=== PATIENT | female | born 1985 | race Caucasian/White ===

== ENCOUNTER 2025-04-27 11:57 | Day surgery (SDC) | payer BC ==
[2025-04-27 12:36] VITALS: BMI 42.9
[2025-04-27] MEDS ORDERED: hydrALAZINE 20 MG/ML VIAL SLOW IVP PRN (12:42)
[2025-04-27 12:58] LABS: #Basophils Less than 0.03 10x3/uL (0.0-0.2); #Eosinophils 0.15 10x3/uL (0.0-0.5); #Monocytes 0.71 10x3/uL (0.0-1.1); #Neutrophils 5.89 10x3/uL (1.5-8.4); %Basophils 0.2 % (0.0-2.0); %Eosinophils 1.8 % (0.0-6.0); %Lymphocytes 17.2 % (18.0-47.0); %Monocytes 8.7 % (0.0-10.0); %Neutrophils 71.9 % (40.0-75.0); Hematocrit 35.5 % (34.9-44.5); Hemoglobin 11.3 g/dL (12.0-15.5); Mean Corpuscular Hemoglobin 26.2 pg (27.0-33.0); Mean Corpuscular Volume 82.2 fL (81.6-98.3); Platelet Count 249 10x3/uL (150-450); Red Blood Cell (RBC) Count 4.32 10x6/uL (3.90-5.03); White Blood Cell (WBC) Count 8.20 10x3/uL (3.5-10.5)
[2025-04-27 13:29] LABS: ALT (SGPT) 20 U/L (Less than 34); AST (SGOT) 24 U/L (11-34); Albumin 2.9 g/dL (3.1-4.5); Alkaline Phosphatase 85 U/L (40-110); Anion Gap 13 mmol/L (10-20); BUN (Urea Nitrogen) 9 mg/dL (7.0-18.7); Bilirubin, Total 0.3 mg/dL (0.3-1.2); Calc. Creatinine Clearance 218 mL/min (70-130); Calcium 9.2 mg/dL (7.8-10.44); Carbon Dioxide 20 mmol/L (22-29); Chloride 106 mmol/L (98-107); Globulin 3.7 g/dL (2.4-3.5); Glucose 69 mg/dL (70-105); Potassium 4.0 mmol/L (3.5-5.1); Sodium 135 mmol/L (136-145)
[2025-04-27 14:13] LABS: Protein, Urine Random Quant Less than 10 mg/dL (1-14)
== END 2025-04-27 15:35 | disposition home or self-care (01) ==
LOC: CSHLD/OP 11:57
PROVIDERS: ATTEND Student in an Organized Health Care Education/Training Program
DX: O99.891 Other specified diseases and conditions complicating pregnancy (principal); R03.0 Elevated blood-pressure reading, without diagnosis of hypertension; O09.513 Supervision of elderly primigravida, third trimester; Z3A.37 37 weeks gestation of pregnancy; Z88.1 Allergy status to other antibiotic agents
CPT/HCPCS: 36415; 80053; 82570; 84156; 85025

== ENCOUNTER 2025-05-10 16:14 | Inpatient (IN) | payer BC ==
[2025-05-10] MEDS ORDERED: Ondansetron PF 4 MG/2 ML Vial IVP PRN (16:32)
[2025-05-10] MEDS ORDERED: Lidocaine 1% (PF) 30 ML VIAL SC PRN (16:32)
[2025-05-10] MEDS ORDERED: Methylergonovine 0.2 MG/ML VIAL IM PRN (16:32)
[2025-05-10] MEDS ORDERED: Ibuprofen 800 MG TAB PO PRN (16:32)
[2025-05-10] MEDS ORDERED: Calcium Gluc 4.6 MEQ/10 ML (100 MG/ML) SLOW IVP PRN (16:32)
[2025-05-10] MEDS ORDERED: HYDROcodone/Acetaminophen 5/325 mg Tablet PO PRN (16:32)
[2025-05-10] MEDS ORDERED: Carboprost 250 MCG/ML AMP IM PRN (16:32)
[2025-05-10] MEDS ORDERED: Oxytocin 30 units/NS 500 ML 500 ML IV SCH ×2 (16:45)
[2025-05-10 16:48] VITALS: BMI 44.6
[2025-05-10 17:53] LABS: ALT (SGPT) 19 U/L (Less than 34); AST (SGOT) 22 U/L (11-34); Albumin 2.8 g/dL (3.1-4.5); Alkaline Phosphatase 107 U/L (40-110); Anion Gap 15 mmol/L (10-20); BUN (Urea Nitrogen) 8 mg/dL (7.0-18.7); Bilirubin, Total 0.2 mg/dL (0.3-1.2); Calc. Creatinine Clearance 223 mL/min (70-130); Calcium 8.8 mg/dL (7.8-10.44); Carbon Dioxide 20 mmol/L (22-29); Chloride 108 mmol/L (98-107); Globulin 3.0 g/dL (2.4-3.5); Glucose 128 mg/dL (70-105); Potassium 4.1 mmol/L (3.5-5.1); Sodium 139 mmol/L (136-145)
[2025-05-10 18:24] LABS: Hematocrit 33.7 % (34.9-44.5); Hemoglobin 11.0 g/dL (12.0-15.5); Mean Corpuscular Hemoglobin 26.5 pg (27.0-33.0); Mean Corpuscular Volume 81.2 fL (81.6-98.3); Platelet Count 265 10x3/uL (150-450); Red Blood Cell (RBC) Count 4.15 10x6/uL (3.90-5.03); White Blood Cell (WBC) Count 8.26 10x3/uL (3.5-10.5)
[2025-05-10 21:00] LABS: Syphilis Antibody Index 0.05 S/CO (<1.00 Non-Reactive)
[2025-05-10 21:01] LABS: Hep B Surf Ag - L&D Non-Reactive S/CO (NonReactive)
[2025-05-11] MEDS: hydrALAZINE 20 MG/ML VIAL SLOW IVP PRN ×3 (05:11→21:25)
[2025-05-11] MEDS: fentaNYL/Ropivacaine Epidural 100 ML ONE (11:01)
[2025-05-11] MEDS ORDERED: Ondansetron PF 4 MG/2 ML Vial IVP PRN ×3 (11:04→22:49)
[2025-05-11] MEDS ORDERED: Acetaminophen 325 MG TAB PO PRN (11:04)
[2025-05-11] MEDS ORDERED: diphenhydrAMINE 50 MG/ML VIAL IVP PRN ×2 (11:04→22:49)
[2025-05-11] MEDS ORDERED: Communication Order-Pharmacy FS SCH ×2 (11:15→23:00)
[2025-05-11] MEDS: Acetaminophen 500 MG TAB PO PRN (19:18)
[2025-05-11] MEDS: fentaNYL 2 mcg/Ropivacaine 0.2% Epidural 100 ML CADD EPIDURAL SCH (19:19)
[2025-05-11] MEDS: Magnesium Sulfate 20 gm/500 ml 4 GM/100 ML BAG IVPB SCH (19:45)
[2025-05-11] MEDS ORDERED: hydrALAZINE 20 MG/ML VIAL SLOW IVP PRN ×2 (20:00)
[2025-05-11] MEDS ORDERED: Famotidine/PF 20 mg/2ml Vial SLOW IVP PRN (21:25)
[2025-05-11] MEDS ORDERED: Bicitra 30 ML UDCUP PO PRN (21:25)
[2025-05-11] MEDS ORDERED: Bisacodyl 10 MG SUPP PR PRN (22:36)
[2025-05-11] MEDS ORDERED: Meperidine HCl/PF 25 MG (1 mL) VIAL SLOW IVP PRN (22:49)
[2025-05-11] MEDS ORDERED: Ketorolac Tromethamine 30 MG (1 mL) VIAL IVP SCH (23:00)
[2025-05-11 23:07] LABS: #Basophils Less than 0.03 10x3/uL (0.0-0.2); #Eosinophils Less than 0.03 10x3/uL (0.0-0.5); #Monocytes 1.03 10x3/uL (0.0-1.1); #Neutrophils 16.73 10x3/uL (1.5-8.4); %Basophils 0.1 % (0.0-2.0); %Eosinophils 0.1 % (0.0-6.0); %Lymphocytes 5.3 % (18.0-47.0); %Monocytes 5.5 % (0.0-10.0); %Neutrophils 88.6 % (40.0-75.0); Hematocrit 34.9 % (34.9-44.5); Hemoglobin 11.4 g/dL (12.0-15.5); Mean Corpuscular Hemoglobin 26.5 pg (27.0-33.0); Mean Corpuscular Volume 81.2 fL (81.6-98.3); Platelet Count 213 10x3/uL (150-450); Red Blood Cell (RBC) Count 4.30 10x6/uL (3.90-5.03); White Blood Cell (WBC) Count 18.88 10x3/uL (3.5-10.5)
[2025-05-11] MEDS ORDERED: HYDROcodone/Acetaminophen 10/325 mg Tablet PO PRN (23:17)
[2025-05-11] MEDS: Diphenoxylate HCl/Atropine Tablet PO PRN (23:44)
[2025-05-12 04:05] LABS: ALT (SGPT) 19 U/L (Less than 34); AST (SGOT) 48 U/L (11-34); Albumin 2.5 g/dL (3.1-4.5); Alkaline Phosphatase 119 U/L (40-110); Anion Gap 15 mmol/L (10-20); BUN (Urea Nitrogen) 7 mg/dL (7.0-18.7); Bilirubin, Total 0.4 mg/dL (0.3-1.2); Calc. Creatinine Clearance 231 mL/min (70-130); Calcium 9.0 mg/dL (7.8-10.44); Carbon Dioxide 17 mmol/L (22-29); Chloride 109 mmol/L (98-107); Globulin 3.5 g/dL (2.4-3.5); Glucose 129 mg/dL (70-105); Magnesium 4.4 mg/dL (1.6-2.6); Potassium 4.0 mmol/L (3.5-5.1); Sodium 137 mmol/L (136-145)
[2025-05-12] MEDS: Ketorolac Tromethamine 30 MG (1 mL) VIAL IVP SCH (05:45)
[2025-05-12] MEDS ORDERED: Bupivacaine HCl 0.5%/Epinephrine 1:200,000/PF 30 ml Vial ONE (07:00)
[2025-05-12] MEDS ORDERED: Lidocaine 2% MPF 10 ML AMP (For Epidural Use) ONE (07:00)
[2025-05-12] MEDS ORDERED: Bupivacaine 0.25% HCL 30 ML VIAL ONE (07:00)
[2025-05-12 07:10] LABS: #Basophils 0.03 10x3/uL (0.0-0.2); #Eosinophils 0.09 10x3/uL (0.0-0.5); #Monocytes 0.88 10x3/uL (0.0-1.1); #Neutrophils 20.56 10x3/uL (1.5-8.4); %Basophils 0.1 % (0.0-2.0); %Eosinophils 0.4 % (0.0-6.0); %Lymphocytes 3.0 % (18.0-47.0); %Monocytes 3.9 % (0.0-10.0); %Neutrophils 92.1 % (40.0-75.0); Hematocrit 33.4 % (34.9-44.5); Hemoglobin 10.8 g/dL (12.0-15.5); Mean Corpuscular Hemoglobin 26.4 pg (27.0-33.0); Mean Corpuscular Volume 81.7 fL (81.6-98.3); Platelet Count 213 10x3/uL (150-450); Red Blood Cell (RBC) Count 4.09 10x6/uL (3.90-5.03); White Blood Cell (WBC) Count 22.35 10x3/uL (3.5-10.5)
[2025-05-12] MEDS: Magnesium Sulfate 20 gm/500 ml 20 GM/500 ML BAG IVPB SCH (14:52)
[2025-05-12] MEDS: Ferrous Sulfate 325 MG TAB PO SCH (22:41)
[2025-05-13] MEDS: Ibuprofen 800 MG TAB PO SCH (05:14)
[2025-05-13] MEDS: HYDROcodone/Acetaminophen 10/325 mg Tablet PO PRN (10:17)
[2025-05-13] MEDS: Simethicone Chewable 80 MG TAB PO PRN (13:59)
[2025-05-13] MEDS: CEFAZOLIN 2 GM VIAL ONE (19:07)
[2025-05-13] MEDS: Lidocaine 2% MPF 10 ML AMP (For Epidural Use) ONE (19:07)
[2025-05-13] MEDS: PHENYLEPHRINE-NS 100 MCG/ML 10 ML SYRINGE ONE (19:08)
[2025-05-13] MEDS: Oxytocin 10 UNITS/ML VIAL ONE (19:08)
[2025-05-13] MEDS: Magnesium Sulfate 20 gm/500 ml 20 GM/500 ML BAG ONE (19:09)
[2025-05-13] MEDS: Ketorolac Tromethamine 30 MG (1 mL) VIAL ONE (19:09)
[2025-05-14] MEDS: Boostrix 0.5 ML (Tdap) VIAL (>/=7 yrs of age) IM ONE (07:43)
[2025-05-14 08:02] VITALS: BP 136/67; TEMP 98.8
== END 2025-05-14 14:40 | disposition home or self-care (01) | DRG 788 ==
LOC: UNDOADMIN 16:14 → CSHLD 16:14 → UNDOADMIN 05-11 22:11 → CSHLD 05-11 22:11 → UNDOADMIN 05-12 02:29 → CSHPP 05-12 23:15
PROVIDERS: ADMIT Student in an Organized Health Care Education/Training Program; ATTEND Student in an Organized Health Care Education/Training Program
PROC: 3E0DXGC Introduction of Other Therapeutic Substance into Mouth and Pharynx, External Approach (ICD-10-PCS; 2025-05-10)
PROC: 10H07YZ Insertion of Other Device into Products of Conception, Via Natural or Artificial Opening (ICD-10-PCS; 2025-05-10)
PROC: 4A1HXCZ Monitoring of Products of Conception, Cardiac Rate, External Approach (ICD-10-PCS; 2025-05-10)
PROC: 10D00Z1 Extraction of Products of Conception, Low, Open Approach (ICD-10-PCS; principal; 2025-05-11)
DX: O14.04 Mild to moderate pre-eclampsia, complicating childbirth (principal); Z37.0 Single live birth; O40.3XX0 Polyhydramnios, third trimester, not applicable or unspecified; O99.214 Obesity complicating childbirth; O62.1 Secondary uterine inertia; Z79.899 Other long term (current) drug therapy; Z79.82 Long term (current) use of aspirin; Z3A.39 39 weeks gestation of pregnancy
CPT/HCPCS: 36415; 51702; 80053; 83735; 85025; 85027; 86780; 86850; 86900; 86901; 87340; J0360; J0665; J1885; J2274; J2550; J2590; J3010; J3475